=== PATIENT | female | born 2000 | race African-American/Black ===

== ENCOUNTER 2018-02-11 19:29 | Inpatient (IN) | payer MEDICAID, OTHER ==
[~2018-02-11] VITALS: Ht 170.2 cm; Wt 72.1 kg
[2018-02-11] MEDS ORDERED: OXYTOCIN 10UNIT/ML 1ML VIAL ONE (20:10)
[2018-02-11] MEDS ORDERED: LACT. RINGERS/OXYTOCIN 20UNITS 1,000 ML IV ONE (20:10)
[2018-02-11] MEDS ORDERED: LIDOCAINE 2% (LOCAL ANESTH.) PF 5ml SDV ONE (20:10)
[2018-02-11] MEDS ORDERED: METHYLERGONOVINE MALEATE 0.2 MG/ML AMP IM ONE (20:11)
[2018-02-11] MEDS ORDERED: LACT. RINGERS/OXYTOCIN 20UNITS 1,000 ML IV SCH (20:41)
[2018-02-11] MEDS ORDERED: WITCH HAZEL-GLYCERIN PAD TOP PRN (20:45)
[2018-02-11] MEDS ORDERED: CARBOPROST TROMETHAMINE 250 MCG/1ML VIAL IM PRN (20:45)
[2018-02-11] MEDS ORDERED: METHYLERGONOVINE MALEATE 0.2 MG/ML AMP IM PRN (20:45)
[2018-02-11] MEDS ORDERED: LIDOCAINE 2% (LOCAL ANESTH.) PF 5ml SDV ID ONE (20:45)
[2018-02-11] MEDS ORDERED: OXYTOCIN 10UNIT/ML 1ML VIAL IM ONE (20:45)
[2018-02-11] MEDS ORDERED: DERMOPLAST 60ML BOTTLE TOP PRN (20:45)
[2018-02-11] MEDS ORDERED: PHISODERM TOP SOLN 240ML BTL TOP PRN (20:45)
[2018-02-11 21:24] LABS: Basophils # (auto) 0 uL; Basophils % (auto) 0.5 % (0.0-2.0); Eosinophils # (auto) 0 uL; Eosinophils % (auto) 0.1 % (0.0-7.0); Hematocrit 38.9 % (36.0-46.0); Hemoglobin 13.2 g/dL (12.2-16.2); Lymphocytes # (auto) 0.4 uL; Lymphocytes % (auto) 4.2 % (10.0-50.0); Mean Corpuscular Hemoglobin 30.9 pg (28.0-32.0); Mean Corpuscular Hgb Conc. 33.9 g/dL (32.0-36.0); Mean Corpuscular Volume 91.1 fL (80.0-100.0); Monocytes # (auto) 0.4 uL; Monocytes % (auto) 3.8 % (0.0-12.0); Neutrophils # (auto) 9.8 uL; Neutrophils % (auto) 91.4 % (37.0-80.0); Nucleated Red Blood Cells % 0.1 %; Platelet Count (auto) 126 10^3/uL (140-450); Red Blood Cells 4.27 10^6/uL (4.0-5.20); Red Cell Distribution Width 15.1 % (11.8-14.3); White Blood Cell 10.7 10^3/uL (4.4-10.8)
[2018-02-11 21:37] LABS: Urine Bacteria NONE SEEN /hpf (None Seen); Urine Blood Negative /uL (Negative); Urine Mucus FEW (None Seen); Urine Specific Gravity 1.022 (1.001-1.035); Urine WBC 1 /hpf (0 - 5)
[2018-02-11 21:39] LABS: INR 0.96 (0.9-1.15); Partial Thromboplastin Time 26.5 sec (23.78-33.04); Prothrombin Time 10.3 sec (9.27-12.13)
[2018-02-11 21:41] LABS: Albumin 2.7 g/dL (3.4-5.0); BUN/Creatinine Ratio 13.2; Calcium 8.7 mg/dL (8.5-10.1); Potassium 3.6 mmol/L (3.5-5.1)
[2018-02-11 21:43] LABS: Alcohol, Urine < 3.0 mg/dL (0-5); Amphetamine Screen, Urine NEGATIVE (NEGATIVE); Barbiturate Scree,Urine NEGATIVE (NEGATIVE); Benzodiazephine Screen, Urine NEGATIVE (NEGATIVE); Cannabinoid Screen, Urine NEGATIVE (NEGATIVE); Cocaine Screen, Urine NEGATIVE (NEGATIVE); Opiate Scree,Urine NEGATIVE (NEGATIVE); Phencyclidine Screen, Urine NEGATIVE (NEGATIVE)
[2018-02-11 21:48] LABS: Bilirubin, Total 0.5 mg/dL (0.2-1.0); Total Protein 6.8 g/dL (6.4-8.2)
[2018-02-11] MEDS ORDERED: ACYC1CAP23 PO (22:05)
[2018-02-11] MEDS ORDERED: PREN-145 OR (22:05)
[2018-02-11] MEDS: IBUPROFEN 600 MG TAB PO PRN (23:19)
[2018-02-12 04:00] VITALS: BP 100/64
[2018-02-12 07:00] VITALS: BP 103/58
[2018-02-12] MEDS: DOCUSATE CALCIUM 240 MG CAP PO SCH (10:46)
[2018-02-12] MEDS: IBUPROFEN 600 MG TAB PO PRN ×2 (10:46→15:10)
[2018-02-12 10:57] VITALS: BP 123/77
[2018-02-12 15:00] VITALS: BP 108/61
[2018-02-12 19:23] VITALS: BP 104/61
[2018-02-12 23:00] VITALS: BP 92/55
[2018-02-13 03:00] VITALS: BP 94/43
[2018-02-13 07:00] VITALS: BP 105/60
[2018-02-13 10:35] VITALS: BP 114/71
[2018-02-13] MEDS: DOCUSATE CALCIUM 240 MG CAP PO SCH (12:44)
[2018-02-13 15:10] VITALS: BP 102/50
[2018-02-13] MEDS ORDERED: SERTRALINE HCL 50 MG TAB PO ONE ×2 (16:45→17:15)
[2018-02-13 18:30] VITALS: BP 114/67
[2018-02-13] MEDS: ACETAMINOPHEN 325 MG TAB PO PRN (19:13)
[2018-02-13 23:05] VITALS: BP 97/61
[2018-02-14 03:00] VITALS: BP 110/73
[2018-02-14] MEDS: ACETAMINOPHEN 325 MG TAB PO PRN (03:21)
[2018-02-14 07:04] VITALS: BP 105/64
[2018-02-14] MEDS: DOCUSATE CALCIUM 240 MG CAP PO SCH (09:36)
[2018-02-14 11:00] VITALS: BP 110/70
== END 2018-02-14 11:10 | disposition home or self-care (01) | DRG 560 ==
LOC: LDRP 19:29 → OBSVTOIN 19:29 → LDRP 20:13
PROVIDERS: ADMIT Specialist; ATTEND Specialist
PROC: 10E0XZZ Delivery of Products of Conception, External Approach (ICD-10-PCS; principal; 2018-02-11)
PROC: 0W8NXZZ Division of Female Perineum, External Approach (ICD-10-PCS; 2018-02-11)
PROC: 10907ZC Drainage of Amniotic Fluid, Therapeutic from Products of Conception, Via Natural or Artificial Opening (ICD-10-PCS; 2018-02-11)
DX: O62.3 Precipitate labor (principal); O98.32 Other infections with a predominantly sexual mode of transmission complicating childbirth; O99.344 Other mental disorders complicating childbirth; F41.9 Anxiety disorder, unspecified; Z37.0 Single live birth; Z3A.38 38 weeks gestation of pregnancy
CPT/HCPCS: 36415; 59025; 59409; 80053; 80307; 81001; 85025; 85610; 85730; 86592; 86850; 86900; 86901; 87340; 96372; G0378; J2001; J2590